=== PATIENT | male | born 1960 | race Caucasian/White ===

== ENCOUNTER 2020-05-18 12:15 | Outpatient (CLI) | payer OTHER, SELFPAY | END 2020-05-18 23:59 | disposition home or self-care (01) | LOC: MLB 12:15 → EDSTATUS 05-25 13:37 | PROVIDERS: ATTEND Surgery | DX: Z01.812 Encounter for preprocedural laboratory examination (principal); K64.8 Other hemorrhoids; Z12.11 Encounter for screening for malignant neoplasm of colon; Z20.822 Contact with and (suspected) exposure to COVID-19 | CPT/HCPCS: 71045; U0003 ==